=== PATIENT | male | born 1965 | race Caucasian/White ===

== ENCOUNTER 2022-08-13 09:53 | Outpatient (CLI) | payer BC, SELFPAY | END 2022-08-13 09:54 | disposition home or self-care (01) | PROVIDERS: PCP Family Medicine; Visit Provider Family Medicine | DX: I10 Essential (primary) hypertension (principal); E78.5 Hyperlipidemia, unspecified | CPT/HCPCS: 80048; 80061 ==

== ENCOUNTER 2023-08-07 08:28 | Outpatient (CLI) | payer BC, SELFPAY | END 2023-08-07 08:29 | disposition home or self-care (01) | PROVIDERS: PCP Family Medicine; Visit Provider Family Medicine | DX: Z00.00 Encounter for general adult medical examination without abnormal findings (principal); I10 Essential (primary) hypertension; E78.5 Hyperlipidemia, unspecified; N20.0 Calculus of kidney | CPT/HCPCS: 80048; 80061; 87086 ==

== ENCOUNTER 2023-08-27 15:56 | Outpatient (CLI) | payer BC, SELFPAY | END 2023-08-27 15:57 | disposition home or self-care (01) | LOC: NFLDREF 08-28 07:16 | PROVIDERS: PCP Family Medicine; Referring Provider Family Medicine; Visit Provider Family Medicine | DX: R31.9 Hematuria, unspecified (principal) | CPT/HCPCS: 87086 ==

== ENCOUNTER 2024-07-20 10:19 | Outpatient (CLI) | payer BC, SELFPAY | END 2024-07-20 10:20 | disposition home or self-care (01) | PROVIDERS: PCP Family Medicine; Visit Provider Family Medicine | DX: E78.2 Mixed hyperlipidemia (principal); I10 Essential (primary) hypertension; R82.90 Unspecified abnormal findings in urine; Z12.5 Encounter for screening for malignant neoplasm of prostate | CPT/HCPCS: 80048; 80061; 87086; G0103 ==